=== PATIENT | male | born 1995 | race American Indian/Alaskan Native ===

== ENCOUNTER 2021-05-29 00:14 | Inpatient (IN) | payer OTHER ==
[2021-05-29] MEDS ORDERED: diazePAM 10 MG/2 ML SYRINGE IV ONE (02:13)
[2021-05-29] MEDS ORDERED: LACTATED RINGERS 1,000 ML IV ONE (02:13)
[2021-05-29] MEDS ORDERED: LORazepam 2 MG/ML VIAL IV PRN (02:13)
--- NOTE | 2021-05-29 02:19 | Emergency Department Report ---
<CINDY WEBSTER - Last Filed: 05/29/21 06:38> ED General Adult HPI - General Chief complaint: Medical Clearance Stated complaint: MEDICAL CLEARANCE Time Seen by Provider: 05/29/21 02:03 - Related Data Home Medications Medication Instructions Recorded Confirmed Last Taken Buprenorphine-Nalox 8-2 mg Tab 8.2 mg SUBLINGUAL Q12HR 05/31/21 05/31/21 05/28/21 Duloxetine HCl [Drizalma Sprinkle] 60 mg PO Q12HR 05/31/21 05/31/21 01/27/21 10:00 Oxycodone HCl [oxyCODONE] 10 mg PO Q6HR 05/31/21 05/31/21 11/28/20 Previous Rx's Medication Instructions Recorded Last Taken Type Famotidine [Pepcid] 20 mg PO BID #60 tablet 05/31/21 Unknown Rx Valsartan [Diovan] 160 mg PO DAILY #30 tablet 05/31/21 Unknown Rx Allergies Allergy/AdvReac Type Severity Reaction Status Date / Time No Known Allergies Allergy Unverified 05/29/21 01:13 ED Past Medical Hx - Medications Home Medications: Home Medications Medication Instructions Recorded Confirmed Last Taken Type Buprenorphine-Nalox 8-2 mg Tab 8.2 mg SUBLINGUAL Q12HR 05/31/21 05/31/21 05/28/21 History Duloxetine HCl [Drizalma Sprinkle] 60 mg PO Q12HR 05/31/21 05/31/21 01/27/21 10:00 History Famotidine [Pepcid] 20 mg PO BID #60 tablet 05/31/21 Unknown Rx Oxycodone HCl [oxyCODONE] 10 mg PO Q6HR 05/31/21 05/31/21 11/28/20 History Valsartan [Diovan] 160 mg PO DAILY #30 tablet 05/31/21 Unknown Rx ED Medical Decision Making - Lab Data Result diagrams: 05/29/21 02:30 05/29/21 02:30 - Radiology Data Patient Name: ALMAS MCINTOSH Gender: Male Date of : 1995 Referring Provider: CATHERINE MANZANARES Organization: [facility] Accession Number: [id number] Requested Date: May 29, 2021 03:42 Report Status: Final Requested Procedure: 1 Procedure Description: NM perfusion only lung scan Modality: NM Findings Reporting MD: Pepe Head Dictation Time: May 29, 2021 05:26 Pit Crew Support Worker: Not available Technology Infusion Specialist Date: Nuclear medicine lung perfusion scan INDICATION: Tachycardia with increased T diameter TECHNIQUE: A total of 5.4 mCi of technetium 99 MAA injected IV per protocol. COMPARISON: No relevant prior exam available for comparison. FINDINGS: No perfusion abnormality is identified. IMPRESSION: No perfusion abnormality appreciated to suggest large pulmonary thromboembolus. Signer Name: Pepe Head MD Signed: 05/29/2021 5:26 AM Workstation Name: [id number] - Medical Decision Making There is no perfusion defect to suggest pulmonary embolism according to radiology impression of perfusion study. I have informed the admitting hospitalist. ED Disposition Clinical Impression: Acute abdominal pain, Metabolic acidosis, Transaminitis, Dehydration, L eukopenia, Lactic acidosis, Pancreatitis Disposition: OP ADMIT IP TO THIS HOSP Is pt being admited?: Yes Does the pt Need Aspirin: No Condition: Serious <CATHERINE MANZANARES - Last Filed: 06/04/21 14:08> ED General Adult HPI - General PUI?: No Source: patient, RN notes reviewed, old records reviewed Mode of arrival: Ambulatory Limitations: Other (And is somewhat of a poor historian) - History of Present Illness Initial comments: Medical records from [facility] are reviewed. Patient has a diagnosis of auto brewery syndrome. This patient was recently admitted to [facility] from May 22 to May 25, 2021. He was admitted for acute worsening of abdominal pain with nausea and vomiting. He was found to have hypertension and tachycardia. He was found to have an elevated lactic acid, elevated ethanol level, anion gap of 30. He also had a CT angiogram of his abdomen pelvis which was negative for mesenteric ischemia. He was noted to have esophageal wall thickening and a renal cyst. He was started on IV fluids, made n.p.o., and managed with Dilaudid and Zofran. Gastroenterology saw this patient in consultation, who recommended proton pump inhibitor. EGD was not indicated. Pain control/palliative care was also consulted, who recommended continuing Suboxone. Opioids were not recommended. The patient remained stable, lactic acidosis impr benjie, along with resolution of decreasing ethanol levels. He was discharged with diagnoses of chronic pancreatitis with chronic abdominal pain, auto brewery syndrome, and opioid dependence. He was also found to have a complicated renal cyst. Today, this patient presents to the ER with a complaint of lower abdominal pain. He denies headache, neck pain, chest pain, shortness of breath, diaphoresis, urinary symptoms and testicular pain. He is not homicidal or suicidal. He indicates that he is not looking for clearance for detox at this time. -: Gradual, hour(s) Location: abdomen Consistency: constant Improves with: rest Worsens with: none ED Review of Systems ROS: Stated complaint: MEDICAL CLEARANCE Other details as noted in HPI Constitutional: denies: fever Eyes: denies: eye discharge ENT: denies: epistaxis Respiratory: denies: cough Cardiovascular: denies: chest pain Gastrointestinal: abdominal pain, nausea, vomiting Neurological: weakness Psychiatric: denies: homicidal thoughts, suicidal thoughts ED Past Medical Hx - Surgical History Past Surgical History?: No Hx Coronary Stent: No Hx Open Heart Surgery: No Hx Pacemaker: No Hx Internal Defibrillator: No Hx Cholecystectomy: No Hx Appendectomy: No Hx Breast Surgery: No - Social History Smoking Status: Never Smoker Substance Use Type: Alcohol ED Physical Exam - General Limitations: Other (The patient is a poor historian) General appearance: appears intoxicated, anxious - Head Head exam: Present: atraumatic, normocephalic - Eye Eye exam: Present: normal appearance, EOMI - ENT ENT exam: Present: normal exam, normal orophraynx, mucous membranes moist, normal external ear exam, other (Tongue fasciculations not noted) - Neck Neck exam: Present: normal inspection, full ROM. Absent: tenderness, meningismus - Respiratory Respiratory exam: Present: normal lung sounds bilaterally. Absent: respiratory distress, wheezes, rales, rhonchi, stridor - Cardiovascular Cardiovascular Exam: Present: normal rhythm, tachycardia, normal heart sounds. Absent: bradycardia, irregular rhythm, systolic murmur, diastolic murmur, rubs, gallop - GI/Abdominal GI/Abdominal exam: Present: soft, tenderness, normal bowel sounds. Absent: distended, guarding, rebound, rigid, pulsatile mass - Rectal Rectal exam: Present: deferred - exam: Present: normal inspection, other (There is normal testicular lie. There is normal cremasteric reflex. There is no testicular tenderness. There is no testicular swelling). Absent: testicular tenderness - Extremities Exam Extremities exam: Present: normal inspection, full ROM, other (2+ pulses noted in the bilateral upper and lower extremities. There is no palpable cord. negative Homans sign. Muscular compartments are soft. The pelvis is stable.). Absent: pedal edema, calf tenderness - Back Exam Back exam: Present: normal inspection. Absent: tenderness, CVA tenderness (R), CVA tenderness (L), paraspinal tenderness, vertebral tenderness - Neurological Exam Neurological exam: Present: alert, other (No facial droop. Tongue midline. Extraocular movements intact bilaterally. Facial sensation intact to light touch in V1, V2, V3 distribution bilaterally. 5 and a 5 strength in 4 extremities. Sensation intact to light touch in 4 extremities.) - Psychiatric Psychiatric exam: Present: anxious. Absent: homicidal ideation, suicidal ideation - Skin Skin exam: Present: warm, dry, intact, normal color. Absent: rash ED Course Vital Signs 05/29/21 05/29/21 05/29/21 01:07 03:15 04:00 Temperature 98.2 F Pulse Rate 134 H 120 H 120 H Respiratory 18 14 13 Rate Blood Pressure Blood Pressure 148/93 131/91 129/90 [Left] O2 Sat by Pulse 97 99 99 Oximetry O2 Sat by Pulse Oximetry [ Digit-Finger] 05/29/21 05/29/21 05/29/21 05:00 05:01 06:06 Temperature Pulse Rate 122 H 128 H Respiratory 16 12 Rate Blood Pressure 127/92 Blood Pressure 127/92 [Left] O2 Sat by Pulse 100 98 Oximetry O2 Sat by Pulse 99 Oximetry [ Digit-Finger] 05/29/21 05/29/21 05/29/21 07:01 07:11 07:21 Temperature Pulse Rate 118 H 118 H 117 H Respiratory 17 16 16 Rate Blood Pressure 135/97 135/97 135/97 Blood Pressure [Left] O2 Sat by Pulse 98 100 99 Oximetry O2 Sat by Pulse Oximetry [ Digit-Finger] 05/29/21 05/29/21 05/29/21 07:31 07:41 07:51 Temperature Pulse Rate 119 H 118 H 123 H Respiratory 16 16 14 Rate Blood Pressure 135/97 135/97 135/97 Blood Pressure [Left] O2 Sat by Pulse 100 99 98 Oximetry O2 Sat by Pulse Oximetry [ Digit-Finger] 05/29/21 05/29/21 05/29/21 08:01 08:11 08:21 Temperature Pulse Rate 129 H 142 H 118 H Respiratory 16 18 16 Rate Blood Pressure 136/90 136/90 136/90 Blood Pressure [Left] O2 Sat by Pulse 100 99 97 Oximetry O2 Sat by Pulse Oximetry [ Digit-Finger] - Reevaluation(s) Reevaluation #1: 05/29/21 04:26 Differential diagnosis diagnosis, including but not limited to: Alcohol intoxication, pancreatitis, dehydration, colitis, diverticulitis, pulmonary embolism Dehydration, alcohol dependence, alcohol withdrawal, metabolic acidosis, lactic acidosis Transaminitis, cholecystitis, alcoholic hepatitis Assessment and plan: 25-year-old gentleman, who is tachycardic, with abdominal tenderness, who was discharged 4 days ago from [facility] for very similar presentation. He had a CT angiogram of his abdomen pelvis which was negative for ischemic findings. He was treated supportively and symptomatically and improved. Today, he has leukopenia, metabolic acidosis, elevated blood alcohol level, transaminitis, lactic acidosis, all likely secondary to underlying alcoholism, and malnutrition. Lactic acidosis today is likely a type II lactic acidosis. Patient very difficult IV stick. Nursing team able to get 24-gauge IV on the dorsal aspect of his left hand. We will obtain CT scan of the abdomen pelvis and right upper quadrant ultrasound. D-dimer elevated, so nuclear medicine study is ordered. Patient meets criteria for admission and hospitalization secondary to acute alcohol intoxication, acute metabolic acidosis, acute lactic acidosis, transaminitis, and evidence of dehydration. He will be started on alcohol withdrawal protocol. We appreciate that the patient meets systemic inflammatory response syndrome criteria. This is likely secondary to the aforementioned. After review of his old medical records, and obtaining his history of performing his physical examination, I do not suspect invasive bacterial infection at this time. However, we will cover empirically with fluids, and broad-spectrum antibiotics. He will be admitted to the medical service once his initial diagnostics have resulted. TSH reviewed and appreciated. Free T4 within normal limits. 05/29/21 04:30 05/29/21 05:43 Dr Lyons to admit; requests bridge orders will sign out ruq ultrasound and v/q scan to my oncoming colleague to follow up 05/29/21 05:58 06/04/21 14:07 Right upper quadrant ultrasound shows fatty liver disease. Nuclear medicine study is low probability for pulmonary embolism. - EJ/Peripheral Line Neck R Time Out Performed: Yes Indications: nurses unable to establis Skin Cleansed in Sterile Fashion: Yes Size: 20 Dressing Placed: Tegaderm Patient Tolerated Procedure: well - Pulse Oximetry Interpretation Digit-Finger Initial Pulse Oximetry Readin O2 Sat by Pulse Oximetry: 99 Actions Taken: none ED Medical Decision Making - Lab Data Result diagrams: 05/29/21 02:30 05/31/21 12:16 Vital Signs 05/29/21 01:07 Temperature 98.2 F Pulse Rate 134 H Respiratory 18 Rate Blood Pressure 148/93 [Left] O2 Sat by Pulse 97 Oximetry Lab Results 05/29/21 05/29/21 05/29/21 Range/Units 02:30 02:30 02:30 WBC (4.5-11.0) K/mm3 RBC (3.65-5.03) M/mm3 Hgb (11.8-15.2) gm/dl Hct (35.5-45.6) % MCV (84-94) fl MCH (28-32) pg MCHC (32-34) % RDW (13.2-15.2) % Plt Count (140-440) K/mm3 PT (12.2-14.9) Sec. INR (0.87-1.13) D-Dimer (0-234) ng/mlDDU Sodium 140 (137-145) mmol/L Potassium 3.8 (3.6-5.0) mmol/L Chloride 91.1 L (98-107) mmol/L Carbon Dioxide 14 L (22-30) mmol/L Anion Gap 39 mmol/L BUN 11 (9-20) mg/dL Creatinine 0.9 (0.8-1.3) mg/dL Estimated GFR > 60 ml/min BUN/Creatinine Ratio 12 % Glucose 61 L (75-100) mg/dL Lactic Acid (0.7-2.0) mmol/L Calcium 9.2 (8.4-10.2) mg/dL Total Bilirubin 0.50 (0.1-1.2) mg/dL AST 575 H (5-40) units/L ALT 210 H (7-56) units/L Alkaline Phosphatase 165 H (35-129) units/L Ammonia (25-60) umol/L Troponin T (0.00-0.029) ng/mL Total Protein 8.5 H (6.3-8.2) g/dL Albumin 5.2 H (3.9-5) g/dL Albumin/Globulin Ratio 1.6 % Lipase (13-60) units/L TSH 0.135 L (0.270-4.200) mlU/mL Free T4 (0.76-1.46) ng/dL Salicylates < 0.3 L (2.8-20.0) mg/dL Acetaminophen (10.0-30.0) ug/mL Plasma/Serum Alcohol (0-0.07) % Hepatitis A IgM Ab (NonReactive) Hep Bs Antigen (Negative) Hep B Core IgM Ab (NonReactive) Hepatitis C Antibody (NonReactive) 05/29/21 05/29/21 05/29/21 Range/Units 02:30 02:30 02:30 WBC 3.1 L (4.5-11.0) K/mm3 RBC 4.61 (3.65-5.03) M/mm3 Hgb 12.7 (11.8-15.2) gm/dl Hct 38.3 (35.5-45.6) % MCV 83 L (84-94) fl MCH 28 (28-32) pg MCHC 33 (32-34) % RDW 20.0 H (13.2-15.2) % Plt Count 206 (140-440) K/mm3 PT (12.2-14.9) Sec. INR (0.87-1.13) D-Dimer (0-234) ng/mlDDU Sodium (137-145) mmol/L Potassium (3.6-5.0) mmol/L Chloride (98-107) mmol/L Carbon Dioxide (22-30) mmol/L Anion Gap mmol/L BUN (9-20) mg/dL Creatinine (0.8-1.3) mg/dL Estimated GFR ml/min BUN/Creatinine Ratio % Glucose (75-100) mg/dL Lactic Acid (0.7-2.0) mmol/L Calcium (8.4-10.2) mg/dL Total Bilirubin (0.1-1.2) mg/dL AST (5-40) units/L ALT (7-56) units/L Alkaline Phosphatase (35-129) units/L Ammonia (25-60) umol/L Troponin T (0.00-0.029) ng/mL Total Protein (6.3-8.2) g/dL Albumin (3.9-5) g/dL Albumin/Globulin Ratio % Lipase (13-60) units/L TSH (0.270-4.200) mlU/mL Free T4 (0.76-1.46) ng/dL Salicylates (2.8-20.0) mg/dL Acetaminophen 5.0 L (10.0-30.0) ug/mL Plasma/Serum Alcohol 0.34 H (0-0.07) % Hepatitis A IgM Ab (NonReactive) Hep Bs Antigen (Negative) Hep B Core IgM Ab (NonReactive) Hepatitis C Antibody (NonReactive) 05/29/21 05/29/21 05/29/21 Range/Units 02:30 02:30 02:30 WBC (4.5-11.0) K/mm3 RBC (3.65-5.03) M/mm3 Hgb (11.8-15.2) gm/dl Hct (35.5-45.6) % MCV (84-94) fl MCH (28-32) pg MCHC (32-34) % RDW (13.2-15.2) % Plt Count (140-440) K/mm3 PT 14.8 (12.2-14.9) Sec. INR 1.10 (0.87-1.13) D-Dimer 670.50 H (0-234) ng/mlDDU Sodium (137-145) mmol/L Potassium (3.6-5.0) mmol/L Chloride (98-107) mmol/L Carbon Dioxide (22-30) mmol/L Anion Gap mmol/L BUN (9-20) mg/dL Creatinine (0.8-1.3) mg/dL Estimated GFR ml/min BUN/Creatinine Ratio % Glucose (75-100) mg/dL Lactic Acid (0.7-2.0) mmol/L Calcium (8.4-10.2) mg/dL Total Bilirubin (0.1-1.2) mg/dL AST (5-40) units/L ALT (7-56) units/L Alkaline Phosphatase (35-129) units/L Ammonia (25-60) umol/L Troponin T < 0.010 (0.00-0.029) ng/mL Total Protein (6.3-8.2) g/dL Albumin (3.9-5) g/dL Albumin/Globulin Ratio % Lipase 6 L (13-60) units/L TSH (0.270-4.200) mlU/mL Free T4 (0.76-1.46) ng/dL Salicylates (2.8-20.0) mg/dL Acetaminophen (10.0-30.0) ug/mL Plasma/Serum Alcohol (0-0.07) % Hepatitis A IgM Ab (NonReactive) Hep Bs Antigen (Negative) Hep B Core IgM Ab (NonReactive) Hepatitis C Antibody (NonReactive) 05/29/21 05/29/21 05/29/21 Range/Units 03:24 03:24 03:24 WBC (4.5-11.0) K/mm3 RBC (3.65-5.03) M/mm3 Hgb (11.8-15.2) gm/dl Hct (35.5-45.6) % MCV (84-94) fl MCH (28-32) pg MCHC (32-34) % RDW (13.2-15.2) % Plt Count (140-440) K/mm3 PT (12.2-14.9) Sec. INR (0.87-1.13) D-Dimer (0-234) ng/mlDDU Sodium (137-145) mmol/L Potassium (3.6-5.0) mmol/L Chloride (98-107) mmol/L Carbon Dioxide (22-30) mmol/L Anion Gap mmol/L BUN (9-20) mg/dL Creatinine (0.8-1.3) mg/dL Estimated GFR ml/min BUN/Creatinine Ratio % Glucose (75-100) mg/dL Lactic Acid 9.00 H* (0.7-2.0) mmol/L Calcium (8.4-10.2) mg/dL Total Bilirubin (0.1-1.2) mg/dL AST (5-40) units/L ALT (7-56) units/L Alkaline Phosphatase (35-129) units/L Ammonia 24.0 L (25-60) umol/L Troponin T (0.00-0.029) ng/mL Total Protein (6.3-8.2) g/dL Albumin (3.9-5) g/dL Albumin/Globulin Ratio % Lipase (13-60) units/L TSH (0.270-4.200) mlU/mL Free T4 (0.76-1.46) ng/dL Salicylates (2.8-20.0) mg/dL Acetaminophen (10.0-30.0) ug/mL Plasma/Serum Alcohol (0-0.07) % Hepatitis A IgM Ab Non-reactive (NonReactive) Hep Bs Antigen Non-reactive (Negative) Hep B Core IgM Ab Non-reactive (NonReactive) Hepatitis C Antibody Non-reactive (NonReactive) 05/29/21 Range/Units 03:24 WBC (4.5-11.0) K/mm3 RBC (3.65-5.03) M/mm3 Hgb (11.8-15.2) gm/dl Hct (35.5-45.6) % MCV (84-94) fl MCH (28-32) pg MCHC (32-34) % RDW (13.2-15.2) % Plt Count (140-440) K/mm3 PT (12.2-14.9) Sec. INR (0.87-1.13) D-Dimer (0-234) ng/mlDDU Sodium (137-145) mmol/L Potassium (3.6-5.0) mmol/L Chloride (98-107) mmol/L Carbon Dioxide (22-30) mmol/L Anion Gap mmol/L BUN (9-20) mg/dL Creatinine (0.8-1.3) mg/dL Estimated GFR ml/min BUN/Creatinine Ratio % Glucose (75-100) mg/dL Lactic Acid (0.7-2.0) mmol/L Calcium (8.4-10.2) mg/dL Total Bilirubin (0.1-1.2) mg/dL AST (5-40) units/L ALT (7-56) units/L Alkaline Phosphatase (35-129) units/L Ammonia (25-60) umol/L Troponin T (0.00-0.029) ng/mL Total Protein (6.3-8.2) g/dL Albumin (3.9-5) g/dL Albumin/Globulin Ratio % Lipase (13-60) units/L TSH (0.270-4.200) mlU/mL Free T4 0.88 (0.76-1.46) ng/dL Salicylates (2.8-20.0) mg/dL Acetaminophen (10.0-30.0) ug/mL Plasma/Serum Alcohol (0-0.07) % Hepatitis A IgM Ab (NonReactive) Hep Bs Antigen (Negative) Hep B Core IgM Ab (NonReactive) Hepatitis C Antibody (NonReactive) - EKG Data -: EKG Interpreted by De Rate: tachycardia - EKG Data When compared to previous EKG there are: previous EKG unavailable 05/29/21 04:25 The EKG is interpreted at 01: 17 Sinus rhythm, tachycardia, rate 123 bpm. Normal axis, QTC 442 ms, high left ventricular voltage. Abnormal EKG. Not a STEMI. - Radiology Data Radiology results: pending, report reviewed, image reviewed [facility] [address] [place] [address] Cat Scan Report Signed Patient: ALMAS MCINTOSH MR#: [id number] : 1995 Acct:[id number] Age/Sex: 25 / M ADM Date: 05/29/21 Loc: ED [place] [address]: Ordering Physician: CATHERINE MANZANARES MD Date of Service: 05/29/21 Procedure(s): CT abdomen pelvis wo con Accession Number(s): [id number] cc: CATHERINE MANZANARES MD CT ABDOMEN AND PELVIS WITHOUT CONTRAST INDICATION / CLINICAL INFORMATION: Patient complains of abd pain, Hx of Pancreatitis. TECHNIQUE: Axial CT images were obtained through the abdomen and pelvis without IV contrast. All CT scans at this location are performed using CT dose reduction for ALARA by means of automated exposure control. COMPARISON: None available. FINDINGS: LOWER CHEST: No significant abnormality. LIVER: Fatty liver. GALLBLADDER: No significant abnormality. BILE DUCTS: No significant abnormality. PANCREAS: Slig ht peripancreatic stranding. SPLEEN: No significant abnormality. ADRENALS: No significant abnormality. RIGHT KIDNEY and URETER: No significant abnormality. LEFT KIDNEY and URETER: Mild left hydronephrosis. STOMACH and SMALL BOWEL: No significant abnormality. COLON: No significant abnormality. APPENDIX: No significant abnormality. PERITONEUM: No free fluid. No free air. No fluid collection. LYMPH NODES: No significant adenopathy. AORTA and ARTERIES: No significant abnormality. IVC and VEINS: No significant abnormality. URINARY BLADDER: No significant abnormality. REPRODUCTIVE ORGANS: No significant abnormality. ADDITIONAL FINDINGS: None. SKELETAL SYSTEM: No significant abnormality. IMPRESSION: Fatty liver. Slight peripancreatic stranding could be secondary to early acute pancreatitis. Mild left hydronephrosis. Overdistention of the urinary bladder. Signer Name: Pepe Head MD Signed: 05/29/2021 4:26 AM Workstation Name: [id number] Transcribed By: BC Dictated By: Pepe Head MD Electronically Authenticated By: Pepe Head MD Signed Date/Time: 05/29/21425 DD/ 2 Critical Care Time: Yes Critical care time in (mins) excluding proc time.: 35 Critical care attestation.: If time is entered above; I have spent that time in minutes in the direct care of this critically ill patient, excluding procedure time. ED Disposition Is pt being admited?: Yes Does the pt Need Aspirin: No
[2021-05-29 02:56] LABS: Hematocrit 38.3 % (35.5-45.6); Hemoglobin 12.7 gm/dl (11.8-15.2); Mean Corpuscular HGB Conc 33 % (32-34); Mean Corpuscular Volume 83 fl (84-94); Platelet Count 206 K/mm3 (140-440); Red Blood Count 4.61 M/mm3 (3.65-5.03)
[2021-05-29 03:06] LABS: INR 1.1 (0.87-1.13)
[2021-05-29] MEDS ORDERED: THIAMINE 100 MG, FOLIC ACID 1 MG, MULTIPLE VITAMIN INJ, ADULT 10 ML in SODIUM CHLORIDE ... IV ONE (03:13)
[2021-05-29 03:18] LABS: Alanine Aminotransferase 210 units/L (7-56); Albumin 5.2 g/dL (3.9-5); BUN/Creatinine Ratio 12; Blood Urea Nitrogen 11 mg/dL (9-20); Calcium 9.2 mg/dL (8.4-10.2); Hemolysis Index 3
[2021-05-29] MEDS ORDERED: DEXTROSE 50% IN WATER (25GM) 50 ML SYRINGE IV ONE (03:19)
[2021-05-29] MEDS ORDERED: DEXTROSE 50% IN WATER (25GM) 50 ML VIAL IV PRN (03:19)
[2021-05-29] MEDS ORDERED: D5W/0.45% NACL 1,000 ML IV SCH (04:00)
[2021-05-29 04:02] LABS: Hepatitis B Surface Antigen Non-Reactive (Negative); Hepatitis C Virus Antibody Non-Reactive (NonReactive)
[2021-05-29] MEDS ORDERED: PIPERACIL/TAZOBACTA 4.5/NS 100 4.5 GM/100 ML VIAL IV ONE (04:30)
[2021-05-29] MEDS ORDERED: LACTATED RINGERS 2,000 ML IV ONE (04:30)
--- NOTE | 2021-05-29 04:30 | Cat Scan Report ---
CT ABDOMEN AND PELVIS WITHOUT CONTRAST INDICATION / CLINICAL INFORMATION: Patient complains of abd pain, Hx of Pancreatitis. TECHNIQUE: Axial CT images were obtained through the abdomen and pelvis without IV contrast. All CT scans at [facility] location are performed using CT dose reduction for ALARA by means of automated exposure control. COMPARISON: None available. FINDINGS: LOWER CHEST: No significant abnormality. LIVER: Fatty liver. GALLBLADDER: No significant abnormality. BILE DUCTS: No significant abnormality. PANCREAS: Slight peripancreatic stranding. SPLEEN: No significant abnormality. ADRENALS: No significant abnormality. RIGHT KIDNEY and URETER: No significant abnormality. LEFT KIDNEY and URETER: Mild left hydronephrosis. STOMACH and SMALL BOWEL: No significant abnormality . COLON: No significant abnormality. APPENDIX: No significant abnormality. PERITONEUM: No free fluid. No free air. No fluid collection. LYMPH NODES: No significant adenopathy. AORTA and ARTERIES: No significant abnormality. IVC and VEINS: No significant abnormality. URINARY BLADDER: No significant abnormality. REPRODUCTIVE ORGANS: No significant abnormality. ADDITIONAL FINDINGS: None. SKELETAL SYSTEM: No significant abnormality. IMPRESSION: Fatty liver. Slight peripancreatic stranding could be secondary to early acute pancreatitis. Mild lef t hydronephrosis. Overdistention of the urinary bladder. Signer Name: Pepe Head MD Signed: 05/29/2021 4:26 AM Workstation Name: [id number]
[2021-05-29] MEDS ORDERED: PANTOPRAZOLE 40 MG INJ IV ONE (04:40)
[2021-05-29] MEDS ORDERED: methIMAzole 5 MG TAB PO ONE (05:58)
[2021-05-29] MEDS ORDERED: PROPRANOLOL 40 MG TAB PO ONE (05:58)
[2021-05-29] MEDS ORDERED: POTASSIUM IODIDE/IODINE (LUGOLS) 5% ORAL LIQD 5 ML PO ONE (05:59)
[2021-05-29] MEDS ORDERED: dexAMETHasone 20 MG/5 ML VIAL IV ONE (05:59)
[2021-05-29] MEDS ORDERED: HYDROmorphone 1 MG/1 ML INJ IV ONE (06:17)
--- NOTE | 2021-05-29 06:30 | Ultrasound Report ---
ULTRASOUND ABDOMEN, LIMITED (RIGHT UPPER QUADRANT) INDICATION: abd pain transaminits. COMPARISON: None available. FINDINGS: Pancreas: Visualized portion shows no significant abnormality. Liver: Fatty liver. Gallbladder: Normal. Bile ducts: Normal. Common Bile Duct measures 3 mm. Free fluid: None. Additional Findings: None. IMPRESSION: Fatty liver Signer Name: Pepe Head MD Signed: 05/29/2021 6:25 AM Workstation Name: [id number]
--- NOTE | 2021-05-29 06:31 | Nuclear Medicine Report ---
Nuclear medicine lung perfusion scan INDICATION: Tachycardia with increased T diameter TECHNIQUE: A total of 5.4 mCi of technetium 99 MAA injected IV per protocol. COMPARISON: No relevant prior exam available for comparison. FINDINGS: No perfusion abnormality is identified. IMPRESSION: No perfusion abnormality appreciated to suggest large pulmonary thromboembolus. Signer Name: Pepe Head MD Signed: 05/29/2021 6:26 AM Workstation Name: [id number]
[2021-05-29] MEDS: LORazepam 2 MG/ML VIAL IV PRN ×3 (06:39→19:30)
--- NOTE | 2021-05-29 07:33 | History and Physical Report ---
History of Present Illness Date of examination: 05/29/21 Date of admission: 05/29/21 05:44 Chief complaint: Severe abdominal pain History of present illness: 25-year-old male patient with significant past medical history of auto brewery syndrome, chronic pain syndrome follows with pain management, chronic pancreatitis, was recently admitted to [facility] from May 22 to May 25, 2021. He was admitted for acute worsening of abdominal pain with naus ea and vomiting. He was found to have hypertension and tachycardia. He was found to have an elevated lactic acid, elevated ethanol level, anion gap of 30. He also had a CT angiogram of his abdomen pelvis which was negative for mesenteric ischemia. He was noted to have esophageal wall thickening and a renal cyst. He was started on IV fluids, made n.p.o., and managed with Dilaudid and Zofran. Gastroenterology saw this patient in consultation, who recommended proton pump inhibitor. EGD was not indicated. Pain control/palliative care was also consulted, who recommended continuing Suboxone. Opioids were not recommended. The patient remained stable, lactic acidosis improved, along with resolution of decreasing ethanol levels. He was discharged with diagnoses of chronic pancreatitis with chronic abdominal pain, auto brewery syndrome, and opioid dependence. He was also found to have a complicated renal cyst. Today, this patient presents to the ER with a complaint of lower abdominal pain. He denies headache, neck pain, chest pain, shortness of breath, diaphoresis, urinary symptoms and testicular pain. He is not homicidal or suicidal. He indicates that he is not looking for clearance for detox at this time. Initial work-up is consistent with lactic acidosis, acute versus chronic transaminitis and chronic abdominal pain. Patient is also opioid dependent, seeking rehabilitation once medically clear patient denies nausea vomiting, denies headache dizziness denies weakness or n umbness Past History Past Medical History: liver disease, other (Auto brewery syndrome chronic pancreatitis,) Past Surgical History: Other ( chronic pancreatitis) Social history: denies: smoking, alcohol abuse Family history: no significant family history Medications and Allergies Allergies Allergy/AdvReac Type Severity Reaction Status Date / Time No Known Allergies Allergy Unverified 05/29/21 01:13 Active Meds: Active Medications Dextrose (Dextrose 50% In Water (25gm) 50 Ml Vial) 50 gm IV Q30MIN PRN; Protocol PRN Reason: Hypoglycemia Dextrose/Sodium Chloride (D5/0.45ns) 1,000 mls @ 250 mls/hr IV DIRECT ANASTASIYA Lorazepam (Lorazepam 2 Mg/Ml Vial) 2 mg IV Q1HR PRN PRN Reason: [facility]-Ar 8-15 Last Admin: 05/29/21 06:39 Dose: 2 mg Documented by: Lorazepam (Lorazepam 2 Mg/Ml Vial) 4 mg IV Q1HR PRN PRN Reason: CIWA-Ar 16-25 Lorazepam (Lorazepam 2 Mg/Ml Vial) 4 mg IV Q15MIN PRN PRN Reason: CIWA-Ar >25 Review of Systems Constitutional: no weight loss, no weight gain, no fever, no chills Ears, nose, mouth and throat: no nasal congestion, no nasal discharge Cardiovascular: no chest pain, no orthopnea, no lightheadedness Respiratory: no cough, no hemoptysis Gastrointestinal: abdominal pain, no nausea, no vomiting, no diarrhea, no constipation, no BRBPR, no melena Genitourinary Male: no dysuria, no hematuria Musculoskeletal: no myalgias, no other Integumentary: no rash, no lesions Neurological: other (Chronic pain syndrome) Psychiatric: no anxiety, no depression Endocrine: no cold intolerance, no heat intolerance Hematologic/Lymphatic: no easy bruising, no easy bleeding Allergic/Immunologic: no urticaria, no allergic rhinitis Exam - Constitutional Vitals: Temp Pulse Resp BP Pulse Ox 98.2 F 118 H 17 135/97 98 05/29/21 01:07 05/29/21 07:01 05/29/21 07:01 05/29/21 07:01 05/29/21 07:01 General appearance: Present: mild distress, well-nourished - EENT Eyes: Present: PERRL, EOM intact - Neck Neck: Present: supple, normal ROM - Respiratory Respiratory effort: normal Respiratory: bilateral: diminished, negative: rales, rhonchi, wheezing - Cardiovascular Rhythm: regular Heart Sounds: Present: S1 & S2 - Extremities Extremities: no ischemia, No edema - Abdominal General gastrointestinal: Present: soft, non-tender, non-distended, normal bowel sounds - Integumentary Integumentary: Present: clear, warm - Musculoskeletal Musculoskeletal: strength equal bilaterally - Psychiatric Psychiatric: appropriate mood/affect, cooperative - Neurologic Neurologic: moves all extremities HEART Score - HEART Score Troponin: Troponin T < 0.010 ng/mL (0.00-0.029) 05/29/21 02:30 Results - Labs CBC & Chem 7: 05/29/21 02:30 05/29/21 02:30 Labs: Abnormal lab results 05/29/21 05/29/21 05/29/21 Range/Units 02:30 02:30 02:30 WBC (4.5-11.0) K/mm3 MCV (84-94) fl RDW (13.2-15.2) % D-Dimer (0-234) ng/mlDDU Chloride 91.1 L (98-107) mmol/L Carbon Dioxide 14 L (22-30) mmol/L Glucose 61 L (75-100) mg/dL POC Glucose (70-105) mg/dL Lactic Acid (0.7-2.0) mmol/L AST 575 H (5-40) units/L ALT 210 H (7-56) units/L Alkaline Phosphatase 165 H (35-129) units/L Ammonia (25-60) umol/L Total Protein 8.5 H (6.3-8.2) g/dL Albumin 5.2 H (3.9-5) g/dL Lipase (13-60) units/L TSH 0.135 L (0.270-4.200) mlU/mL Salicylates < 0.3 L (2.8-20.0) mg/dL Acetaminophen (10.0-30.0) ug/mL Plasma/Serum Alcohol (0-0.07) % 05/29/21 05/29/21 05/29/21 Range/Units 02:30 02:30 02:30 WBC 3.1 L (4.5-11.0) K/mm3 MCV 83 L (84-94) fl RDW 20.0 H (13.2-15.2) % D-Dimer (0-234) ng/mlDDU Chloride (98-107) mmol/L Carbon Dioxide (22-30) mmol/L Glucose (75-100) mg/dL POC Glucose (70-105) mg/dL Lactic Acid (0.7-2.0) mmol/L AST (5-40) units/L ALT (7-56) units/L Alkaline Phosphatase (35-129) units/L Ammonia (25-60) umol/L Total Protein (6.3-8.2) g/dL Albumin (3.9-5) g/dL Lipase (13-60) units/L TSH (0.270-4.200) mlU/mL Salicylates (2.8-20.0) mg/dL Acetaminophen 5.0 L (10.0-30.0) ug/mL Plasma/Serum Alcohol 0.34 H (0-0.07) % 05/29/21 05/29/21 05/29/21 Range/Units 02:30 02:30 03:24 WBC (4.5-11.0) K/mm3 MCV (84-94) fl RDW (13.2-15.2) % D-Dimer 670.50 H (0-234) ng/mlDDU Chloride (98-107) mmol/L Carbon Dioxide (22-30) mmol/L Glucose (75-100) mg/dL POC Glucose (70-105) mg/dL Lactic Acid (0.7-2.0) mmol/L AST (5-40) units/L ALT (7-56) units/L Alkaline Phosphatase (35-129) units/L Ammonia 24.0 L (25-60) umol/L Total Protein (6.3-8.2) g/dL Albumin (3.9-5) g/dL Lipase 6 L (13-60) units/L TSH (0.270-4.200) mlU/mL Salicylates (2.8-20.0) mg/dL Acetaminophen (10.0-30.0) ug/mL Plasma/Serum Alcohol (0-0.07) % 05/29/21 05/29/21 Range/Units 03:24 04:46 WBC (4.5-11.0) K/mm3 MCV (84-94) fl RDW (13.2-15.2) % D-Dimer (0-234) ng/mlDDU Chloride (98-107) mmol/L Carbon Dioxide (22-30) mmol/L Glucose (75-100) mg/dL POC Glucose 122 H (70-105) mg/dL Lactic Acid 9.00 H* (0.7-2.0) mmol/L AST (5-40) units/L ALT (7-56) units/L Alkaline Phosphatase (35-129) units/L Ammonia (25-60) umol/L Total Protein (6.3-8.2) g/dL Albumin (3.9-5) g/dL Lipase (13-60) units/L TSH (0.270-4.200) mlU/mL Salicylates (2.8-20.0) mg/dL Acetaminophen (10.0-30.0) ug/mL Plasma/Serum Alcohol (0-0.07) % Assessment and Plan --H/o Auto brewery syndrome; Low carbohydrate diet/30 g or less per meal. Nutrition consult --Chronic pain syndrome; Patient follows with pain management Continue pain medications and supportive care --Chronic pancreatitis; Clear liquids, IV fluids, pain medications Supportive care Abdominal ultrasound; fatty liver CT abdomen and pelvis; fatty liver peripancreatic stranding could be secondary to early acute pancreatitis mild left hydronephrosis over distended urinary bladder VQ scan; no perfusion abnormality appreciated to suggest large pulmonary thromboembolus no PE --Elevated D-dimers; VQ scan no evidence of PE We will check lower extremity venous Doppler to rule out DVT --Distended bladder; mild hydronephrosis Encouraged the patient to void, Aguilar catheter if needed If no improvement will consult urology --Acute hepatitis/transaminitis Closely monitor transaminases Fatty liver, Consult GI --Abnormal thyroid function tests; Mild decrease in TSH, normal T4 We will repeat thyroid panel and address accordingly --Lactic acidosis; Monitor for any evidence of infectious process Patient is afebrile, WBC normal limits, no evidence of infectious process Except for acute pancreatitis, will closely monitor --DVT prophylaxis; SCD, subcu Lovenox --DC planning per case management We will closely monitor the patient and adjust the management as needed Plan of care reviewed with the patient and his nurse
--- NOTE | 2021-05-29 09:59 | Electrocardiograph Report ---
[facility] Test Date: 2021-05-29 Test Time: 01:17:23 Pat Name: ALMAS MCINTOSH Department: Room: [facility] 1 Gender: M Library Manager: KENNY : 1995 Requested By: LILY CASIANO Order Number: [id number] Reading MD: Jamie Barrientos Measurements Intervals [place] Rate: 123 P: 81 AL: 148 QRS: 74 QRSD: 98 T: 20 QT: 316 QTc: 452 Interpretive Statements Sinus tachycardia No previous ECG available for comparison Electronically Signed On 05-29-2021 9:59:37 EDT by Jamie Barrientos
[2021-05-29] MEDS: SODIUM CHLORIDE 0.9% 1000 ML 1,000 ML IV SCH ×2 (10:20→21:53)
[2021-05-29] MEDS: HYDROmorphone 1 MG/1 ML INJ IV PRN ×3 (10:21→21:43)
[2021-05-29] MEDS: FAMOTIDINE 20 MG/2 ML INJ IV SCH ×2 (10:22→21:41)
--- NOTE | 2021-05-29 16:58 | Gastroenterology Consultation ---
History of Present Illness - Reason for Consult Consult date: 05/29/21 abd pain Requesting physician: LILY CASIANO - History of Present Illness This pleasant 25-year-old gentleman admitted with abdominal pain History obtained from patient and records available from [place] Very interesting case, patient reports abdominal pain which is constant for 4 years waxing and waning in severity Records from [place] indicate that he did have issues with alcohol and opiate abu se as there was one note documenting that he had a empty bottle of pain medication and a water bottle filled with alcohol once when he came to the emergency room. However there is further documentation of significant testing done and the diagnosis of auto-Brewers and he does report being on a low c arbohydrate diet and he does deny alcohol use Currently patient with severe abdominal pain epigastric deep quality radiating diffusely no current associated diarrhea He does report having taken Creon having tried to have biopsies were taken to rule out celiac disease. A total of 6 biopsies were taken, the first from the duodenal bulb, with each subsequent biopsies progressively distal with the last biopsy as distal as could be reached with the endoscope plexus block, etc. with interventions not helping He reports he just wants to feel good enough so he can go back to work he is afraid he will lose his job He is also asking for a [employer] pump as that helped his pain when he was at [place] Of note we have a discharge summary from [place] documenting that opiates were specifically recommended to be avoided and not to give [employer] pump due to concern with patient's prior opiate dependence Obtained/updated/reviewed patient's current medications Past History Past Medical History: liver disease, other (Auto brewery syndrome chronic pancreatitis,) Past Surgical History: Other ( chronic pancreatitis) Social history: denies: smoking, alcohol abuse Family history: no significant family history Medications and Allergies Allergies Allergy/AdvReac Type Severity Reaction Status Date / Time No Known Allergies Allergy Unverified 05/29/21 01:13 Active Meds: Active Medications Dextrose (Dextrose 50% In Water (25gm) 50 Ml Vial) 50 gm IV Q30MIN PRN; Protocol PRN Reason: Hypoglycemia Famotidine (Famotidine 20 Mg/2 Ml Inj) 20 mg IV BID ANASTASIYA Last Admin: 05/29/21 10:22 Dose: 20 mg Documented by: Hydromorphone HCl (Hydromorphone 1 Mg/1 Ml Inj) 1 mg IV Q6H PRN PRN Reason: Pain , Severe (7-10) Last Admin: 05/29/21 15:25 Dose: 1 mg Documented by: Sodium Chloride (Nacl 0.9% 1000 Ml) 1,000 mls @ 150 mls/hr IV DIRECT ANASTASIYA Last Admin: 05/29/21 10:20 Dose: 100 mls/hr Documented by: Lorazepam (Lorazepam 2 Mg/Ml Vial) 2 mg IV Q1HR PRN PRN Reason: CIWA-Ar 8-15 Last Admin: 05/29/21 12:48 Dose: 2 mg Documented by: Lorazepam (Lorazepam 2 Mg/Ml Vial) 4 mg IV Q1HR PRN PRN Reason: CIWA-Ar 16-25 Lorazepam (Lorazepam 2 Mg/Ml Vial) 4 mg IV Q15MIN PRN PRN Reason: CIWA-Ar >25 Review of Systems - Review of Systems All systems: negative (10 Systems reviewed and negative except as mentioned above in the history of present illness) Exam - Constitutional Vital Signs: Temp Pulse Resp BP Pulse Ox 99.0 F 109 H 17 131/87 99 05/29/21 15:45 05/29/21 15:45 05/29/21 15:45 05/29/21 15:45 05/29/21 15:45 General appearance: no acute distress - EENT Eyes: EOM intact - Neck Neck: supple - Respiratory Respiratory effort: normal - Cardiovascular Rhythm: regular - Gastrointestinal General gastrointestinal: Present: soft, non-tender, normal bowel sounds - Integumentary Integumentary: Present: dry - Neurologic Neurological: alert and oriented x3 - Psychiatric Psychiatric: appropriate mood/affect - Labs CBC & Chem 7: 05/29/21 02:30 05/29/21 02:30 Lab Results: Laboratory Results - last 24 hr 05/29/21 05/29/21 05/29/21 02:30 02:30 02:30 WBC RBC Hgb Hct MCV MCH MCHC RDW Plt Count PT INR D-Dimer Sodium 140 Potassium 3.8 Chloride 91.1 L Carbon Dioxide 14 L Anion Gap 39 BUN 11 Creatinine 0.9 Estimated GFR > 60 BUN/Creatinine Ratio 12 Glucose 61 L POC Glucose Lactic Acid Calcium 9.2 Total Bilirubin 0.50 AST 575 H ALT 210 H Alkaline Phosphatase 165 H Ammonia Troponin T Total Protein 8.5 H Albumin 5.2 H Albumin/Globulin Ratio 1.6 Lipase TSH 0.135 L Free T4 Salicylates < 0.3 L Acetaminophen Plasma/Serum Alcohol Hepatitis A IgM Ab Hep Bs Antigen Hep B Core IgM Ab Hepatitis C Antibody 05/29/21 05/29/21 05/29/21 02:30 02:30 02:30 WBC 3.1 L RBC 4.61 Hgb 12.7 Hct 38.3 MCV 83 L MCH 28 MCHC 33 RDW 20.0 H Plt Count 206 PT INR D-Dimer Sodium Potassium Chloride Carbon Dioxide Anion Gap BUN Creatinine Estimated GFR BUN/Creatinine Ratio Glucose POC Glucose Lactic Acid Calcium Total Bilirubin AST ALT Alkaline Phosphatase Ammonia Troponin T Total Protein Albumin Albumin/Globulin Ratio Lipase TSH Free T4 Salicylates Acetaminophen 5.0 L Plasma/Serum Alcohol 0.34 H Hepatitis A IgM Ab Hep Bs Antigen Hep B Core IgM Ab Hepatitis C Antibody 05/29/21 05/29/21 05/29/21 02:30 02:30 02:30 WBC RBC Hgb Hct MCV MCH MCHC RDW Plt Count PT 14.8 INR 1.10 D-Dimer 670.50 H Sodium Potassium Chloride Carbon Dioxide Anion Gap BUN Creatinine Estimated GFR BUN/Creatinine Ratio Glucose POC Glucose Lactic Acid Calcium Total Bilirubin AST ALT Alkaline Phosphatase Ammonia Troponin T < 0.010 Total Protein Albumin Albumin/Globulin Ratio Lipase 6 L TSH Free T4 Salicylates Acetaminophen Plasma/Serum Alcohol Hepatitis A IgM Ab Hep Bs Antigen Hep B Core IgM Ab Hepatitis C Antibody 05/29/21 05/29/21 05/29/21 03:24 03:24 03:24 WBC RBC Hgb Hct MCV MCH MCHC RDW Plt Count PT INR D-Dimer Sodium Potassium Chloride Carbon Dioxide Anion Gap BUN Creatinine Estimated GFR BUN/Creatinine Ratio Glucose POC Glucose Lactic Acid 9.00 H* Calcium Total Bilirubin AST ALT Alkaline Phosphatase Ammonia 24.0 L Troponin T Total Protein Albumin Albumin/Globulin Ratio Lipase TSH Free T4 Salicylates Acetaminophen Plasma/Serum Alcohol Hepatitis A IgM Ab Non-reactive Hep Bs Antigen Non-reactive Hep B Core IgM Ab Non-reactive Hepatitis C Antibody Non-reactive 05/29/21 05/29/21 05/29/21 03:24 04:46 11:50 WBC RBC Hgb Hct MCV MCH MCHC RDW Plt Count PT INR D-Dimer Sodium Potassium Chloride Carbon Dioxide Anion Gap BUN Creatinine Estimated GFR BUN/Creatinine Ratio Glucose POC Glucose 122 H Lactic Acid 5.00 H* Calcium Total Bilirubin AST ALT Alkaline Phosphatase Ammonia Troponin T Total Protein Albumin Albumin/Globulin Ratio Lipase TSH Free T4 0.88 Salicylates Acetaminophen Plasma/Serum Alcohol Hepatitis A IgM Ab Hep Bs Antigen Hep B Core IgM Ab Hepatitis C Antibody Assessment and Plan According to the documentation from [place], patient appears to be having acute on chronic pancreatitis from his recurrent episodes of elevated alcohol levels due to his auto brewery syndrome Regarding acute management I am increasing his IV fluids to 150 cc an hour Advance diet as tolerated Pain management is going to be extremely challenging in this situation. Usually we would recommend opiates. However the notes from [place] specifically recommend against opiates and recommend Suboxone. Unfortunately do not have experience with Suboxone and would not be able to provide guidance regarding the proper way to use it, and we do not have pain management available here in the hospital Therefore recommend attempting to minimize opiates as much as possible per recommendations from [place] and I do recommend that he follow-up with tertiary care center at [place] for further evaluation and management of this extremely complex and challenging and rare situation. - Patient Problems (1) Acute abdominal pain Current Visit: Yes Status: Acute (2) Pancreatitis Current Visit: Yes Status: Acute
[2021-05-30] MEDS: LORazepam 2 MG/ML VIAL IV PRN ×3 (00:06→23:31)
[2021-05-30] MEDS: HYDROmorphone 1 MG/1 ML INJ IV PRN ×3 (03:19→19:53)
[2021-05-30 06:32] LABS: Bilirubin,Urine NEG (Negative); Blood,Urine NEG (Negative); Color,Urine Yellow (Yellow); Mucus,Urine FEW /HPF; Urobilinogen,Urine < 2.0 mg/dL (<2.0)
[2021-05-30 06:34] LABS: RBC,Urine < 1.0 /HPF (0.0-6.0)
[2021-05-30 06:40] LABS: Amphetamine Screen,Urine Negative; Benzodiazepines Screen,Urine Negative; Cannabinoid Screen,Urine Negative; Cocaine Screen,Urine Negative; Methadone Screen,Urine Negative; Opiate Screen,Urine Negative
[2021-05-30] MEDS ORDERED: dexAMETHasone 20 MG/5 ML VIAL IV ONE (07:00)
[2021-05-30] MEDS: SODIUM CHLORIDE 0.9% 1000 ML 1,000 ML IV SCH ×2 (07:03→19:56)
[2021-05-30] MEDS ORDERED: hydrALAZINE 20 MG/1 ML INJ IV ONE ×2 (07:41→21:58)
--- NOTE | 2021-05-30 08:36 | Progress Note ---
Assessment and Plan Assessment and plan: --Hypomagnesemia/hypophosphatemia/hyponatremia; Replenish per protocol, sodium phosphate IV Magnesium sulfate, monitor electrolytes --H/o Auto brewery syndrome; Low carbohydrate diet/30 g or less per meal. Nutrition consult --Chronic pain syndrome; Patient follows with pain management Continue pain medications and supportive care --Chronic pancreatitis; Clear liquids, IV fluids, pain medications Supportive care, GI following Abdominal ultrasound; fatty liver CT abdomen and pelvis; fatty liver peripancreatic stranding could be secondary to early acute pancreatitis mild left hydronephrosis over distended urinary bladder VQ scan; no perfusion abnormality appreciated to suggest large pulmonary t hromboembolus no PE --Elevated D-dimers; VQ scan no evidence of PE We will check lower extremity venous Doppler to rule out DVT --Distended bladder; mild hydronephrosis Encouraged the patient to void, Aguilar catheter if needed If no improvement will consult urology --Acute hepatitis/transaminitis Closely monitor transaminases Fatty liver, Consult GI --Abnormal thyroid function tests; Mild decrease in TSH, normal T4 We will repeat thyroid panel and address accordingly --Lactic acidosis; Monitor for any evidence of infectious process Patient is afebrile, WBC normal limits, no evidence of infectious process Except for acute pancreatitis, will closely monitor --DVT prophylaxis; SCD, subcu Lovenox --DC planning per case management We will closely monitor the patient and adjust the management as needed Plan of care reviewed with the patient and his nurse Possible discharge tomorrow if stable And patient will follow with his [place] team of physicians for further evaluation and management 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 History Interval history: I have seen and examined the patient at the bedside Patient's chart and medications reviewed Patient feels slightly better, still has mild abdominal pain Denies nausea vomiting Vital signs noted Multiple electrolyte abnormalities Hospitalist Physical - Constitutional Vitals: Temp Pulse Resp BP Pulse Ox 98.6 F 73 16 143/97 100 05/30/21 04:29 05/30/21 06:52 05/30/21 04:29 05/30/21 06:52 05/30/21 04:29 General appearance: Present: mild distress, well-nourished - EENT Eyes: Present: PERRL, EOM intact - Neck Neck: Present: supple, normal ROM - Respiratory Respiratory effort: normal Respiratory: bilateral: diminished, negative: rales, rhonchi, wheezing - Cardiovascular Rhythm: regular Heart Sounds: Present: S1 & S2 - Extremities Extremities: no ischemia, No edema - Abdominal General gastrointestinal: soft, non-tender, non-distended, normal bowel sounds - Integumentary Integumentary: Present: clear, warm - Psychiatric Psychiatric: appropriate mood/affect, cooperative - Neurologic Neurologic: moves all extremities HEART Score - HEART Score Troponin: Troponin T < 0.010 ng/mL (0.00-0.029) 05/29/21 02:30 Results - Labs CBC & Chem 7: 05/29/21 02:30 05/30/21 08:00 Labs: Laboratory Last Values WBC 3.1 K/mm3 (4.5-11.0) L 05/29/21 02:30 RBC 4.61 M/mm3 (3.65-5.03) 05/29/21 02:30 Hgb 12.7 gm/dl (11.8-15.2) 05/29/21 02:30 Hct 38.3 % (35.5-45.6) 05/29/21 02:30 MCV 83 fl (84-94) L 05/29/21 02:30 MCH 28 pg (28-32) 05/29/21 02:30 MCHC 33 % (32-34) 05/29/21 02:30 RDW 20.0 % (13.2-15.2) H 05/29/21 02:30 Plt Count 206 K/mm3 (140-440) 05/29/21 02:30 PT 14.8 Sec. (12.2-14.9) 05/29/21 02:30 INR 1.10 (0.87-1.13) 05/29/21 02:30 D-Dimer 670.50 ng/mlDDU (0-234) H 05/29/21 02:30 Sodium 140 mmol/L (137-145) 05/29/21 02:30 Potassium 3.8 mmol/L (3.6-5.0) 05/29/21 02:30 Chloride 91.1 mmol/L (98-107) L 05/29/21 02:30 Carbon Dioxide 14 mmol/L (22-30) L 05/29/21 02:30 Anion Gap 39 mmol/L 05/29/21 02:30 BUN 11 mg/dL (9-20) 05/29/21 02:30 Creatinine 0.9 mg/dL (0.8-1.3) 05/29/21 02:30 Estimated GFR > 60 ml/min 05/29/21 02:30 BUN/Creatinine Ratio 12 % 05/29/21 02:30 Glucose 61 mg/dL (75-100) L 05/29/21 02:30 POC Glucose 122 mg/dL (70-105) H 05/29/21 04:46 Lactic Acid 1.10 mmol/L (0.7-2.0) 05/30/21 08:00 Calcium 9.2 mg/dL (8.4-10.2) 05/29/21 02:30 Total Bilirubin 0.50 mg/dL (0.1-1.2) 05/29/21 02:30 AST 575 units/L (5-40) H 05/29/21 02:30 ALT 210 units/L (7-56) H 05/29/21 02:30 Alkaline Phosphatase 165 units/L (35-129) H 05/29/21 02:30 Ammonia 24.0 umol/L (25-60) L 05/29/21 03:24 Troponin T < 0.010 ng/mL (0.00-0.029) 05/29/21 02:30 Total Protein 8.5 g/dL (6.3-8.2) H 05/29/21 02:30 Albumin 5.2 g/dL (3.9-5) H 05/29/21 02:30 Albumin/Globulin Ratio 1.6 % 05/29/21 02:30 Lipase 6 units/L (13-60) L 05/29/21 02:30 TSH 0.135 mlU/mL (0.270-4.200) L 05/29/21 02:30 Free T4 0.88 ng/dL (0.76-1.46) 05/29/21 03:24 Urine Color Yellow (Yellow) 05/30/21 04:30 Urine Turbidity Clear (Clear) 05/30/21 04:30 Urine pH 6.0 (5.0-7.0) 05/30/21 04:30 Ur Specific Harmon 1.017 (1.003-1.030) 05/30/21 04:30 Urine Protein 30 mg/dl mg/dL (Negative) 05/30/21 04:30 Urine Glucose (UA) Neg mg/dL (Negative) 05/30/21 04:30 Urine Ketones 20 mg/dL (Negative) 05/30/21 04:30 Urine Blood Neg (Negative) 05/30/21 04:30 Urine Nitrite Neg (Negative) 05/30/21 04:30 Urine Bilirubin Neg (Negative) 05/30/21 04:30 Urine Urobilinogen < 2.0 mg/dL (<2.0) 05/30/21 04:30 Ur Leukocyte Esterase Neg (Negative) 05/30/21 04:30 Urine WBC (Auto) 1.0 /HPF (0.0-6.0) 05/30/21 04:30 Urine RBC (Auto) < 1.0 /HPF (0.0-6.0) 05/30/21 04:30 U Epithel Cells (Auto) < 1.0 /HPF (0-13.0) 05/30/21 04:30 Urine Mucus Few /HPF 05/30/21 04:30 Salicylates < 0.3 mg/dL (2.8-20.0) L 05/29/21 02:30 Urine Opiates Screen Negative 05/30/21 04:30 Urine Methadone Screen Negative 05/30/21 04:30 Acetaminophen 5.0 ug/mL (10.0-30.0) L 05/29/21 02:30 Ur Barbiturates Screen Negative 05/30/21 04:30 Ur Phencyclidine Scrn Negative 05/30/21 04:30 Ur Amphetamines Screen Negative 05/30/21 04:30 U Benzodiazepines Scrn Negative 05/30/21 04:30 Urine Cocaine Screen Negative 05/30/21 04:30 U Marijuana (THC) Screen Negative 05/30/21 04:30 Drugs of Abuse Note Disclamer 05/30/21 04:30 Plasma/Serum Alcohol 0.34 % (0-0.07) H 05/29/21 02:30 Hepatitis A IgM Ab Non-reactive (NonReactive) 05/29/21 03:24 Hep Bs Antigen Non-reactive (Negative) 05/29/21 03:24 Hep B Core IgM Ab Non-reactive (NonReactive) 05/29/21 03:24 Hepatitis C Antibody Non-reactive (NonReactive) 05/29/21 03:24 Aguilar/IV: Voiding Method Urinal Active Medications - Current Medications Current Medications: Generic Name Dose Route Start Last Admin Trade Name Freq PRN Reason Stop Dose Admin Dextrose 50 gm 05/29/21 03:19 Dextrose 50% In Water (25gm) 50 Ml Vial IV Q30MIN PRN Hypoglycemia Protocol Famotidine 20 mg 05/29/21 10:00 05/29/21 21:41 Famotidine 20 Mg/2 Ml Inj IV 20 mg BID ANASTASIYA Administration Hydromorphone HCl 1 mg 05/29/21 10:07 05/30/21 03:19 Hydromorphone 1 Mg/1 Ml Inj IV 1 mg Q6H PRN Administration Pain , Severe (7-10) Sodium Chloride 1,000 mls @ 150 mls/hr 05/29/21 07:45 05/30/21 07:03 Nacl 0.9% 1000 Ml IV 100 mls/hr DIRECT ANASTASIYA Administration Lorazepam 2 mg 05/29/21 02:13 05/29/21 19:30 Lorazepam 2 Mg/Ml Vial IV 2 mg Q1HR PRN Administration CIWA-Ar 8-15 Lorazepam 4 mg 05/29/21 02:13 05/30/21 06:22 Lorazepam 2 Mg/Ml Vial IV 4 mg Q1HR PRN Administration CIWA-Ar 16-25 Lorazepam 4 mg 05/29/21 02:13 Lorazepam 2 Mg/Ml Vial IV Q15MIN PRN CIWA-Ar >25
[2021-05-30 08:37] LABS: Alanine Aminotransferase 115 units/L (7-56); Albumin 4.5 g/dL (3.9-5); Blood Urea Nitrogen 4 mg/dL (9-20); Calcium 9.9 mg/dL (8.4-10.2)
[2021-05-30 08:57] LABS: BUN/Creatinine Ratio 8
[2021-05-30] MEDS: FAMOTIDINE 20 MG/2 ML INJ IV SCH ×2 (14:02→21:02)
--- NOTE | 2021-05-30 16:25 | Gastroenterology Progress Note ---
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 Pain management is going to be extremely challenging in this situation as discussed extensively in yesterday's note. If patient not rapidly improving would recommend consideration of transfer to [place] for proper pain control and further evaluation and management of this extremely complex situation involving a rare diagnosis. - Patient Problems (1) Acute abdominal pain Current Visit: Yes Status: Acute (2) Pancreatitis Current Visit: Yes Status: Acute Subjective Date of service: 05/30/21 Principal diagnosis: pancreatitis Interval history: Patient reports his pain is unchanged Abdominal pain stable severe sharp mid upper abdomen Objective - Constitutional Vitals: Temp Pulse Resp BP Pulse Ox 98.6 F 73 16 143/97 100 05/30/21 04:29 05/30/21 06:52 05/30/21 04:29 05/30/21 06:52 05/30/21 04:29 General appearance: mild distress - EENT Eyes: EOM intact - Neck Neck: supple - Respiratory Respiratory effort: normal - Cardiovascular Rhythm: regular - Gastrointestinal General gastrointestinal: Present: soft, tender, normal bowel sounds - Labs CBC & Chem 7: 05/29/21 02:30 05/30/21 08:00 Labs: Laboratory Results - last 24 hr 05/30/21 05/30/21 05/30/21 04:30 04:30 08:00 Sodium Potassium Chloride Carbon Dioxide Anion Gap BUN Creatinine Estimated GFR BUN/Creatinine Ratio Glucose Lactic Acid 1.10 Calcium Phosphorus Magnesium Total Bilirubin AST ALT Alkaline Phosphatase Total Protein Albumin Albumin/Globulin Ratio Urine Color Yellow Urine Turbidity Clear Urine pH 6.0 Ur Specific Echo 1.017 Urine Protein 30 mg/dl Urine Glucose (UA) Neg Urine Ketones 20 Urine Blood Neg Urine Nitrite Neg Urine Bilirubin Neg Urine Urobilinogen < 2.0 Ur Leukocyte Esterase Neg Urine WBC (Auto) 1.0 Urine RBC (Auto) < 1.0 U Epithel Cells (Auto) < 1.0 Urine Mucus Few Urine Opiates Screen Negative Urine Methadone Screen Negative Ur Barbiturates Screen Negative Ur Phencyclidine Scrn Negative Ur Amphetamines Screen Negative U Benzodiazepines Scrn Negative Urine Cocaine Screen Negative U Marijuana (THC) Screen Negative Drugs of Abuse Note Disclamer 05/30/21 08:00 Sodium 136 L Potassium 3.9 Chloride 96.9 L Carbon Dioxide 24 D Anion Gap 19 BUN 4 L Creatinine 0.5 L Estimated GFR > 60 BUN/Creatinine Ratio 8 Glucose 111 H Lactic Acid Calcium 9.9 Phosphorus 1.60 L Magnesium 1.40 L Total Bilirubin 1.00 AST 203 H ALT 115 H Alkaline Phosphatase 133 H Total Protein 7.2 Albumin 4.5 Albumin/Globulin Ratio 1.7 Urine Color Urine Turbidity Urine pH Ur Specific Echo Urine Protein Urine Glucose (UA) Urine Ketones Urine Blood Urine Nitrite Urine Bilirubin Urine Urobilinogen Ur Leukocyte Esterase Urine WBC (Auto) Urine RBC (Auto) U Epithel Cells (Auto) Urine Mucus Urine Opiates Screen Urine Methadone Screen Ur Barbiturates Screen Ur Phencyclidine Scrn Ur Amphetamines Screen U Benzodiazepines Scrn Urine Cocaine Screen U Marijuana (THC) Screen Drugs of Abuse Note
[2021-05-30] MEDS ORDERED: SODIUM PHOSPHATE 30 MMOL in SODIUM CHLORIDE 0.9% 500 ML 500 ML IV ONE (18:18)
[2021-05-30] MEDS ORDERED: MAGNESIUM SULFATE 3 GM in SODIUM CHLORIDE 0.9% 100 ML IV ONE (18:18)
[2021-05-30] MEDS: VALSARTAN 160MG TAB PO SCH (21:06)
[2021-05-31] MEDS: HYDROmorphone 1 MG/1 ML INJ IV PRN ×2 (02:30→08:41)
[2021-05-31] MEDS: LORazepam 2 MG/ML VIAL IV PRN (06:26)
[2021-05-31] MEDS: SODIUM CHLORIDE 0.9% 1000 ML 1,000 ML IV SCH (06:26)
--- NOTE | 2021-05-31 08:52 | Gastroenterology Progress Note ---
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 From GI perspective no further interventions available, patient should followup with [facility] for proper outpatient pain control and further evaluation and management of this extremely complex situation involving a rare diagnosis. GI will sign off please call us back if we can be of any further assistance - Patient Problems (1) Acute abdominal pain Current Visit: Yes Status: Acute (2) Pancreatitis Current Visit: Yes Status: Acute Subjective Date of service: 05/31/21 Principal diagnosis: pancreatitis Interval history: Patient reports his pain is similar, a little better with warm compress I modified his diet yesterday to carb consistent, but there are still carb rich foods in this diet Abdominal pain stable severe sharp mid upper abdomen Objective - Constitutional Vitals: Temp Pulse Resp BP Pulse Ox 98.0 F 91 H 16 131/79 98 05/31/21 04:31 05/31/21 04:31 05/31/21 04:31 05/31/21 04:31 05/31/21 04:31 General appearance: no acute distress - EENT Eyes: EOM intact - Neck Neck: supple - Respiratory Respiratory effort: normal - Gastrointestinal General gastrointestinal: Present: soft, tender - Integumentary Integumentary: Present: dry - Labs CBC & Chem 7: 05/29/21 02:30 05/30/21 08:00 Labs: Laboratory Results - last 24 hr 05/30/21 05/31/21 08:00 07:14 Carbon Dioxide 24 D Anion Gap 19 Creatinine 0.5 L Estimated GFR > 60 BUN/Creatinine Ratio 8 POC Glucose 124 H
[2021-05-31] MEDS ORDERED: FAMOTIDINE 20 MG TAB PO SCH (10:00)
[2021-05-31] MEDS: VALSARTAN 160MG TAB PO SCH (10:12)
--- NOTE | 2021-05-31 11:04 | Vascular Lab Report ---
DUPLEX DOPPLER LOWER EXTREMITY VEINS, BILATERAL INDICATION: Elevated D-dimers/evaluate for DVT. TECHNIQUE: Duplex doppler imaging was performed through the veins of both lower extremities using ve nous compression and other maneuvers. COMPARISON: No relevant prior imaging study available. FINDINGS: Right Common femoral vein: Negative. Right Superficial femoral vein: Negative. Right Popliteal vein: Negative. Right Calf veins: Negative. Left Common femoral vein: Negative. Left Superficial femoral vein: Negative. Left Popliteal vein: Negative. Left Calf veins: Negative. Additional findings: None. IMPRESSION: No sonographic evidence for DVT in either lower extremity. Signer Name: Manuel Orozco Jr, MD Signed: 05/31/2021 11:00 AM Workstation Name: [id number]
[2021-05-31 12:59] LABS: Blood Urea Nitrogen 3 mg/dL (9-20); Calcium 8.9 mg/dL (8.4-10.2); Hemolysis Index 155
[2021-05-31 13:00] LABS: BUN/Creatinine Ratio 6
--- NOTE | 2021-05-31 13:22 | Discharge Summary ---
Providers - Providers Date of Admission: 05/30/21 16:33 Date of discharge: 05/31/21 Attending physician: LILY CASIANO 05/29/21 08:57 Consult to Physician [CONS] Routine Comment: Consulting Provider: MIKO LOPEZ Physician Instructions: Reason For Exam: Chronic pancreatitis/transaminitis Primary care physician: HEALTH ADVISOR Hospitalization Reason for admission: Severe abdominal pain Condition: Serious Pertinent studies: Abdominal ultrasound: Fatty liver CT abdomen and pelvis: Fatty liver slight peripancreatic stranding could be secondary to early acute pancreatitis, mild left hydronephrosis, over distention of the urinary bladder VQ scan:: No large PE Lower extremity venous Doppler ; No sonographic evidence of DVT in either lower extremity Hospital course: 25-year-old male patient with significant past medical history of auto brewery syndrome, chronic pain syndrome follows with pain management, chronic pancreatitis, was recently admitted to [facility] from May 22 to May 25, 2021. He was admitted for acute worsening of abdominal pain with naus ea and vomiting. He was found to have hypertension and tachycardia. He was found to have an elevated lactic acid, elevated ethanol level, anion gap of 30. He also had a CT angiogram of his abdomen pelvis which was negative for mesenteric ischemia. He was noted to have esophageal wall thickening and a renal cyst. He was started on IV fluids, made n.p.o., and managed with Dilaudid and Zofran. Gastroenterology saw this patient in consultation, who recommended proton pump inhibitor. EGD was not indicated. Pain control/palliative care was also consulted, who recommended continuing Suboxone. Patient symptoms slowly but gradually improved, today patient is comfortable no new complaints blood pressures and blood sugars moderate control Cleared by consultants, patient advised to follow with primary care physician, director supply and GI per schedule. Patient strongly advised to comply with medications diet and follow-up visits Patient verbalized understanding. Discharge diagnosis: --Hypomagnesemia/hypophosphatemia/hyponatremia; Replenish per protocol, sodium phosphate IV Magnesium sulfate, monitor electrolytes --H/o Auto brewery syndrome; Low carbohydrate diet/30 g or less per meal. Nutrition consult --Chronic pain syndrome; Patient follows with pain management Continue pain medications and supportive care --Chronic pancreatitis; Clear liquids, IV fluids, pain medications Supportive care, GI following Abdominal ultrasound; fatty liver CT abdomen and pelvis; fatty liver peripancreatic stranding could be secondary to early acute pancreatitis mild left hydronephrosis over distended urinary bladder VQ scan; no perfusion abnormality appreciated to suggest large pulmonary thromboembolus no PE --Elevated D-dimers; VQ scan no evidence of PE We will check lower extremity venous Doppler to rule out DVT --Distended bladder; mild hydronephrosis Encouraged the patient to void, Aguilar catheter if needed If no improvement will consult urology --Acute hepatitis/transaminitis Closely monitor transaminases Fatty liver, Consult GI --Abnormal thyroid function tests; Mild decrease in TSH, normal T4 We will repeat thyroid panel and address accordingly --Lactic acidosis; Monitor for any evidence of infectious process Patient is afebrile, WBC normal limits, no evidence of infectious process Except for acute pancreatitis, will closely monitor Disposition: - TO HOME OR SELFCARE Final Discharge Diagnosis (Prints w/discharge instructions): --H/o Auto brewery syndrome;. --History of auto Brewery syndrome. --History of hypertension. --Elevated D-dimers; negative PE and DVT. --Mild hydronephrosis; resolved. Advised to see private urologist upon discharge. --Acute hepatitis/transaminitis; improved. --Fatty liver; supportive care. --Abnormal thyroid tests. --Hypomagnesemia, hypokalemia, hypophosphatemia. --Hyponatremia, Time spent for discharge: 35 min Core Measure Documentation - Palliative Care Palliative Care/ Comfort Measures: Not Applicable - Core Measures Any of the following diagnoses?: none Exam - Constitutional Vitals: Temp Pulse Resp BP Pulse Ox 98.0 F 91 H 16 131/79 98 05/31/21 04:31 05/31/21 10:12 05/31/21 04:31 05/31/21 10:12 05/31/21 04:31 General appearance: Present: no acute distress, well-nourished - EENT Eyes: Present: PERRL, EOM intact - Neck Neck: Present: supple, normal ROM - Respiratory Respiratory effort: normal Respiratory: bilateral: diminished, negative: rales, rhonchi, wheezing - Cardiovascular Rhythm: regular Heart Sounds: Present: S1 & S2 - Extremities Extremities: no ischemia, No edema - Abdominal General gastrointestinal: Present: soft, non-tender, non-distended, normal bowel sounds - Integumentary Integumentary: Present: clear, warm - Musculoskeletal Musculoskeletal: strength equal bilaterally - Psychiatric Psychiatric: appropriate mood/affect, cooperative - Neurologic Neurologic: moves all extremities Plan Activity: advance as tolerated Diet: regular Additional Instructions: Advised to follow pain management per schedule. Advised to follow with [facility] per schedule. If you have worsening symptoms contact MD or go to emergency room as needed. Advised to go to drug detox center for treatment Follow up with: PRIMARY CARE, [Primary Care Provider] - 3-5 Days Prescriptions: Valsartan [Diovan] 160 mg PO DAILY #30 tablet Famotidine [Pepcid] 20 mg PO BID #60 tablet
[2021-05-31 14:35] VITALS: BP 107/67
== END 2021-05-31 16:01 | disposition home or self-care (01) | DRG 439 ==
LOC: ED 00:14 → 3A 05:44 → OBSVTOIN 05-30 16:33
PROVIDERS: ADMIT Hospitalist; ATTEND Internal Medicine
DX: K85.20 Alcohol induced acute pancreatitis without necrosis or infection (principal); E87.2 Acidosis; B17.9 Acute viral hepatitis, unspecified; N13.30 Unspecified hydronephrosis; F11.20 Opioid dependence, uncomplicated; E87.1 Hypo-osmolality and hyponatremia; F10.99 Alcohol use, unspecified with unspecified alcohol-induced disorder; K86.1 Other chronic pancreatitis; R74.01 Elevation of levels of liver transaminase levels; D72.819 Decreased white blood cell count, unspecified; E86.0 Dehydration; G89.4 Chronic pain syndrome; K76.0 Fatty (change of) liver, not elsewhere classified; R94.6 Abnormal results of thyroid function studies; E83.42 Hypomagnesemia; E83.39 Other disorders of phosphorus metabolism; R79.1 Abnormal coagulation profile; Y90.9 Presence of alcohol in blood, level not specified
CPT/HCPCS: 36415; 74176; 76705; 78580; 80048; 80053; 80074; 80307; 80320; 81001; 82140; 82962; 83690; 83735; 84100; 84439; 84443; 84484; 85027; 85379; 85610; 87086; 93005; 93970; 96365; 96375; G0378; A9540; C9113; G0480; J0360; J1100; J1170; J2060; J2543; J3360; J3411; J3475; J7030; J7040; J7120